=== PATIENT | female | born 1950 ===

== ENCOUNTER → 2016-03-23 | Day surgery (SDC) | payer MEDICARE, MEDICAID ==
--- NOTE | 2016-03-22 09:57 | History and Physical ---
History of Present Illness Present Illness HPI 65 year old female seen in clinic prior to discuss findings of her diagnostic mammogram. During this visit patient stated that she has epigastric pain that is concerning to her. States that in the past year she has noted that a prior bulge in her epigastric region has become larger and more painful. pain described as intermittent sharp pain that is worse when attempting to sit up or do activity. States it doesn't bother her when she is laying flat or resting. She can feel a lump/mass in that area sometimes. Of note, when discussing her surgical history she states that she had a open cholecystectomy 28 years ago which was complicated by wound infection that required weeks of dressings changes. She cannot recall much more than this about the events and [place] Otherwise well and without complaints. denies any significant weight gain or loss recently. no prior nausea or emesis. no prior symptoms of bowel obstruction, incarceration, or strangulation. Patient History History Provided By: Patient Healthcare decision maker patient Resuscitation status Advanced Directive on File Family History Family History: Patient reports no known family medical history. Social History Social History: (1) History of cholecystectomy (2) History of cataract surgery (3) History of colonoscopy (4) Diabetes Review of Systems Constitutional: Denies: chills, fever, malaise, no symptoms, other, see HPI, sweats, weakness Eye: Denies: acuity changes, blurred vision, discharge, double vision, eye pain , no symptoms, nose congestion, nose pain, other, see HPI, tearing ENT: Denies: ear discharge, ear pain, hearing loss, mouth pain, nasal discharge , no symptoms, nose congestion, nose pain, other, see HPI, throat pain, throat swelling Respiratory: Denies: AVELAR, cough, no symptoms, orthopnea, other, see HPI, shortness of breath, sputum, stridor, wheezing Cardiovascular: Denies: PND, chest pain, edema, no symptoms, other, palpitations, see HPI, syncope Gastrointestinal: Reports: abdominal pain Genitourinary: Denies: discharge, dysuria, frequency, hematuria, incontinence, no symptoms, other, pain, retention, see HPI, urgency, vag bleed/dc Musculoskeletal: Denies: back pain, gout, joint pain, joint swelling, muscle pain, muscle stiffness, no symptoms, other, see HPI Skin: Denies: change in color, change in hair/nails, dryness, lesions, no symptoms, other, rash, see HPI Psychiatric: Denies: HI, SI, anxiety, depressed feelings, emotional problems, hallucinations, no symptoms, other, prior hx, see HPI Neurological: Denies: dizziness, focal weakness, headache, no symptoms, numbness, other, paresthesia, see HPI, seizure, syncope, tingling, tremors Endocrine: Denies: excessive sweating, flushing, increased thirst, increased urine, intolerance to temperature, no symptoms, other, see HPI, unexplained weight loss Hematologic/Lymphatic: Denies: anemia, blood clots, diathesis, easy bleeding, easy bruising, no symptoms, other, see HPI, swollen glands All Other Systems: negative except mentioned in HPI Physical Exam General Appearance: WD/WN, no apparent distress, alert HEENT: normocephalic, atraumatic, PERRL Neck: non-tender, normal alignment Respiratory/Chest: lungs clear, normal breath sounds Breasts: no masses Cardiovascular/Chest: normal peripheral pulses, normal rate Abdomen: normal bowel sounds, soft, hernia - incisional ventral hernia around epigastric region Extremities: normal range of motion, non-tender Skin Exam: normal pigmentation Neurologic: communication lecturer II-XII grossly normal, alert, oriented x 3 Assessment/Plan Problem List: (1) Incisional hernia ICD Codes: K43.2 - Incisional hernia without obstruction or gangrene SNOMED: [id number] Qualifiers: Qualified Codes: K43.2 - Incisional hernia without obstruction or gangrene Assessment/Plan 65 year old female with incisional ventral hernia. medial aspect of her prior open cholecystectomy incision near the epigastric region. symptomatic causing discomfort and pain. becoming more symptomatic and larger in the past year. hernia repair indicated. risks, benefits and alternatives discussed with patient in detail. she expressed understanding and desire to proceed with surgery. recommend laparoscopic incisional ventral hernia repair with mesh, possible open. may need to stay in the hospital over night if complicated or requires conversion to open. pre op labs and orders as written. Jose Burkett MD Mar 22, 2016 09:57
[2016-03-23] VITALS (13 sets, daily range): BP systolic 101–140; BP diastolic 43–68
[~2016-03-23] VITALS: Ht 154.9 cm; Wt 77.1 kg
[~2016-03-23] MED LIST: Bupivacaine w/Epi 0.25% 30ml Vial INJ ONE; GABAPENTIN600 MG ORAL; Ketorolac 30mg Inj IV PRN; LOSARTAN POTASS50 MG ORAL; LR 1000ml ONE; METFORMIN HCL1000 M1 ORAL; NS Irrig 1000ml IRRIG ONE; Neostigmine 1mg/ml 10ml Inj ONE; OMEPRAZOLE20 M2 ORAL; PT TO BRING LIST; Propofol 10mg/ml 20ml IV ONE; SIMVASTATIN20 MG ORAL; Sterile Water Irrig 1000ml IRRIG ONE; TRADJENTA5 MG PO; TRAZODONE HCL150 MG ORAL; Zemuron 50mg/5ml Inj IV ONE; fentaNYL 100 mcg/2 mL IV ONE; fentaNYL 100 mcg/2 mL IV PRN
--- NOTE | 2016-03-23 08:39 | Pre-Procedure Note/Attestation ---
Pre-Procedure Note/Attestation Complete Prior to Procedure Planned Procedure: not applicable Procedure Narrative: ventral hernia repair; laparoscopic vs open Indications for Procedure Pre-Operative Diagnosis: incisional ventral hernia Attestation I attest that I discussed the nature of the procedure; its benefits; risks and complications; and alternatives (and the risks and benefits of such alternatives ), prior to the procedure, with the patient (or the patient's legal digital sales representative). I attest that, if there was a reasonable possibility of needing a blood transfusion, the patient (or the patient's legal digital sales representative) was given the [facility] standardized written summary, pursuant to the [place] Blood Safety Act ([place] Health and Safety Code # 1645, as amended). I attest that I re-evaluated the patient just prior to the surgery and that there has been no change in the patient's H&P, except as documented below: Jose Burkett MD Mar 23, 2016 08:39
--- NOTE | 2016-03-23 09:24 | Anethesia Preoperative Eval ---
Anesthesia Pre-op PMH/ROS General Date of Evaluation: Mar 23, 2016 Time of Evaluation: 09:00 ASA Score: ASA 1 Mallampati Score Class I : Soft palate, uvula, fauces, pillars visible Class II: Soft palate, uvula, fauces visible Class III: Soft palate, base of uvula visible Class IV: Only hard plate visible Mallampati Classification: Class I Anesthesia History: none Allergies: Coded Allergies: No Known Allergies (Unverified , 03/22/16) Anesthesia Pre-op Phys. Exam Physician Exam Last Vital Signs Date Time Temp Pulse Resp B/P Pulse Ox O2 Delivery O2 Flow Rate FiO2 03/23/16 08:16 98.0 65 18 129/62 99 Room Air Lexy Lopez MD Mar 23, 2016 09:24
--- NOTE | 2016-03-23 11:35 | Immediate Post-Op Evaluation ---
Immediate Post-Op Evalulation Immediate Post-Op Evalulation Procedure: lap ventral hernia repair Date of Evaluation: Mar 23, 2016 Time of Evaluation: 11:32 IV Fluids: 500ml Blood Products: none Estimated Blood Loss: none Urinary Output: due to void Blood Pressure Systolic: 131 Blood Pressure Diastolic: 57 Pulse Rate: 67 Respiratory Rate: 15 O2 Sat by Pulse Oximetry: 100 Temperature (Fahrenheit): 98 Pain Score (1-10): 0 Nausea: No Vomiting: No Complications none Patient Status: awake, reacts Hydration Status: adequate Dru Given Within 1 Hr of Incision: Yes Time Given: 09:15 ZOHAIB MONTILLA D.O. Mar 23, 2016 11:35
--- NOTE | 2016-03-23 11:41 | 48 Hour Post Anesthesia Eval ---
Post Anesthesia Evaluation Procedure: lap ventral hernia repair Date of Evaluation: Mar 23, 2016 Time of Evaluation: 11:39 Blood Pressure Systolic: 116 0: 54 Pulse Rate: 66 Respiratory Rate: 16 Temperature (Fahrenheit): 96.9 O2 Sat by Pulse Oximetry: 99 Airway: patent Nausea: No Vomiting: No Pain Intensity: 0 Hydration Status: adequate Cardiopulmonary Status: stable Mental Status/LOC: patient returned to baseline Follow-up Care/Observations: as per surgeon Post-Anesthesia Complications: none Follow-up care needed: N/A ZOHAIB MONTILLA D.O. Mar 23, 2016 11:41
--- NOTE | 2016-03-23 11:44 | Brief Operative Note ---
Immediate Post Operative Note Operative Note Pre-op Diagnosis: incisional ventral hernia Procedure: laparoscopic ventral hernia repair with mesh Post-op Diagnosis: incisional ventral hernia Post-op Diagnosis: same as pre-op Findings: consistent w/pre-op dx studies - 3cm ventral hernia at the medial aspect of prior surgical right subcostal incision with omentum herniated into defect. Surgeon: Harpreet Burkett Bus System Operator: Ramírez Saini Anesthesiologist: Harpreet Lopez Anesthesia: general Specimen: none Complications: none Condition: stable Fluids: 600 cc crystalloid Estimated Blood Loss: volume - 50cc Drains: none Packing: none Implant(s) used?: Yes - bard mesh Jose Burkett MD Mar 23, 2016 11:44
[2016-03-23] MEDS: Hydromorphone 0.5mg/0.5ml inj IVP PRN ×2 (11:55→12:31)
--- NOTE | 2016-03-24 16:07 | Operative Note - Dictated ---
DATE OF OPERATION: 03/23/2016 PREOPERATIVE DIAGNOSIS: Incisional ventral hernia. POSTOPERATIVE DIAGNOSIS: Incisional ventral hernia. OPERATION PERFORMED: 1. Laparoscopic ventral hernia repair with mesh. 2. Laparoscopic lysis of adhesions. ATTENDING SURGEON: Jose Burkett M.D. MANAGER INTERVENTIONAL SURGEON: Ramírez Saini M.D. ANESTHESIOLOGIST: Lexy Lopez M.D. ANESTHESIA: General WATER/WASTEWATER ENGINEER. SPECIMENS: None. COMPLICATIONS: None. FLUIDS: 600 mL crystalloid. ESTIMATED BLOOD LOSS: 50 mL. DRAINS: None. ANTIBIOTICS: Given one hour prior to incision time. WOUND CLASSIFICATION: Class I. IMPLANTS: Bard VentraLight ST 4.5 inch mesh, reference #[id number], lot #[id number] and Bard OptiFix absorbable fixation system, reference #[id number], lot #[id number]. OPERATIVE FINDINGS: A 3 cm ventral hernia incisional at the medial aspect of prior surgical right subcostal incision with sliding omentum herniated with into the defect. INDICATION FOR PROCEDURE: This is a 65-year-old female, who was seen prior in clinic and complained of epigastric abdominal pain. The patent stated that she had an open laparoscopic cholecystectomy 20 years ago, which was complicated by wound infection requiring packing and dressing changes for weeks. Approximately over ten years ago, she again noticed some epigastric abdominal discomfort. Since then and especially in the last year, she has noted some worsening epigastric pain with a bulge in that region. This is around the medial aspect of her right subcostal incision for a prior open cholecystectomy. She has probably discomfort mainly with coughing and sitting up. It is comfortable when she is lying down. She has never had any obstructive symptoms in the past. Surgery was indicated. These findings were discussed with the patient and the risks, benefits, and alternatives to repair were discussed with the patient in detail. The patient expressed understanding and consented for surgery. I explained to the patient that there is a potential risk for infection, bleeding, recurrence, and need for possible reoperation. I explained to the patient that we will be inserting a mesh and potentially other complications of infection or erosion or recurrence. The patient expressed understanding. After appropriate preoperative workup, the patient was scheduled for laparoscopic, possible open, ventral hernia repair with mesh. DESCRIPTION OF OPERATION: The patient was taken to the operating room and placed on the operating table in supine position with bilateral arms tucked. All bony prominences were padded with gel pads. Preoperative antibiotics were given one hour prior to cut time. Appropriate time-out was taken identifying the patient, procedure, operating staff, and surgical staff. General anesthesia was induced and the patient was intubated. The abdomen was then prepped and draped in sterile surgical fashion. We began by making infraumbilical incision using a fresh #11 scalpel. This was taken down to the fascia and the fascia was elevated and incised. Once this was complete, entry into the abdomen was obtained using the open Harmeet technique and the intraabdominal contents were identified. No adhesions or complication were noted. A balloon tip 12 mm Harmeet trocar was then inserted and the abdomen insufflated 12 to 15 mmHg. The patient tolerated the insufflation well. The laparoscope was then inserted and the abdomen was inspected. No complications from this trocar placement was noted. The abdomen was inspected and multiple omental and bowel adhesions were noted in the right upper quadrant around the area of the prior surgical site. We were also able to identify a ventral hernia in medial aspect just right of the epigastrium. Defect size was approximately 3 cm in circumference. There was a small amount of omentum that was easily reducible through this defect. We began by placing two additional 5 mm trocars in the right and left midgastric region just lateral to the rectus muscle. This was done under direct visualization without complication. Once this was complete, the omental adhesions to the abdominal wall were taken down using laparoscopic scissors and electrocautery as necessary. There was an area of small bowel that was adhesed to the lower abdominal wall and this was taken down with sharp dissection using scissors without complication. Once all the adhesion was taken down, the defect was circumferentially cleared and the abdomen was inspected and no abnormalities were identified. This time, decision was made to close the 3 cm defect. A small incision was made using a fresh 11 blade at the center of the defect on the skin. A suture passer was then used to get through the fascia into the abdomen under direct visualization. A #0 PDS suture was then grasped and brought through the small incision. Using same incision on the opposite side of the fascia, in a similar fashion, the remaining of the suture was brought out. This was done twice and the defect was closed using 2 interrupted #0 PDS sutures. Once this was complete, a Bard ventral mesh was then inserted into the abdomen under direct visualization for the mesh repair. Prior to insertion into the abdomen, four #0 PDS stay sutures were placed in each of the four quadrants of the mesh prior to insertion. These were intended to be used for tacking to the anterior abdominal wall. Once this was complete, the mesh was measured out onto the skin and four incisions were made at the area for the tacking sutures. A 1 to 2 mm incision was made with a #11 blade. The suture retrieval device was then inserted through each of these four and both arms of the prior placed tacking sutures were grasped through different incisions, through each of the four tacking sites. These were then brought up and once appropriate tied down holding the mesh in place intraabdominally without significant tension or overlap. Once this was satisfactory, a ShelfFlip OptiFix absorbable fixation device was then used to tack the mesh to the anterior abdominal wall in multiple places. Once this was complete, the abdomen was then inspected and appropriate ventral hernia repair with mesh was completed. Of note, during the fixation and tacking, the abdominal pressures were decreased down 8 to 10 mmHg for appropriate tacking. At this time, secondary trocars were removed under direct visualization. No bleeding or other abnormalities were noted. The umbilical trocar was then removed. All wounds were irrigated. The infraumbilical port site was then closed using a #0 PDS suture and a #0 Vicryl suture. Local anesthetic was injected throughout the procedure as necessary. There were no noted complications. The remaining skin incisions were closed using 4-0 Monocryl sutures followed by application of skin glue and Steri-Strips. The patient tolerated the procedure well and was extubated and taken to the postanesthesia care unit in stable condition. Jose Burkett M.D. DR: Fletcher JOB#: [id number] CC: LOUIE
== END | disposition home or self-care (01) ==
LOC: SUR 07:35
DX: K43.9 Ventral hernia without obstruction or gangrene (principal); K66.0 Peritoneal adhesions (postprocedural) (postinfection); E11.9 Type 2 diabetes mellitus without complications; Z90.49 Acquired absence of other specified parts of digestive tract
CPT/HCPCS: 49652; 82962; J0690; J1170; J1885; J2405; J2704; J2710; J3010; J7120; 94003; 94150